=== PATIENT | female | born 1990 | race Caucasian/White ===

== ENCOUNTER 2021-03-06 10:59 | Inpatient (IN) | payer MEDICAID, OTHER ==
[~2021-03-06] VITALS: Ht 162 cm; Wt 86.0 kg
[2021-03-06] VITALS (12 sets, daily range): BP systolic 103–146; BP diastolic 49–96
[2021-03-06 11:42] LABS: BILIRUBIN,URINE NEGATIVE (NEGATIVE); CLARITY,URINE SL CLOUDY; COLOR,URINE YELLOW; GLUCOSE, URINE (UA) NEGATIVE (NEGATIVE); KETONES,URINE NEGATIVE (NEGATIVE); LEUKOCYTE ESTERASE ,URINE 1+ (NEGATIVE); NITRITE,URINE NEGATIVE (NEGATIVE); PROTEIN,URINE NEGATIVE (NEGATIVE)
[2021-03-06 11:57] LABS: AMPHETAMINE SCREEN, URINE NEGATIVE (NEGATIVE); BARBITURATE SCREEN URINE NEGATIVE (NEGATIVE); BENZODIAZEPINES SCREEN URINE NEGATIVE (NEGATIVE); CANNABINOID SCREEN, URINE NEGATIVE (NEGATIVE); COCAINE SCREEN URINE NEGATIVE (NEGATIVE); METHADONE STAT NEGATIVE (NEGATIVE); METHAMPHETAMINE SCREEN URINE S POSITIVE (NEGATIVE); OPIATE SCREEN URINE NEGATIVE (NEGATIVE); OXYCODONE STAT NEGATIVE (NEGATIVE); PROPOXYPHENE STAT NEGATIVE (NEGATIVE); TRICYCLIC ANTIDEPRESSANTS SCRE NEGATIVE (NEGATIVE)
[2021-03-06 12:04] LABS: BACTERIA,URINE MODERATE /HPF
[2021-03-06 12:47] LABS: BASOPHILS % (AUTO) 0 % (0-10); EOSINOPHILS # (AUTO) 0.1 10^3/uL (0.0-0.3); EOSINOPHILS % (AUTO) 2 % (0-10); HEMATOCRIT 29 % (35-52); HEMOGLOBIN 9.3 g/dL (11.5-16.0); LYMPHOCYTES # (AUTO) 2.1 10^3/uL (1.0-4.0); LYMPHOCYTES % (AUTO) 23 % (12-44); MEAN CORPUSCULAR HEMOGLOBIN 27 pg (25-34); MEAN CORPUSCULAR HGB CONC 32 g/dL (32-36); MEAN CORPUSCULAR VOLUME 85 fL (80-99); MEAN PLATELET VOLUME 9.6 fL (9.0-12.2); MONOCYTES # (AUTO) 0.6 10^3/uL (0.0-1.0); MONOCYTES % (AUTO) 6 % (0-12); NEUTROPHILS # (AUTO) 6.1 10^3/uL (1.8-7.8); NEUTROPHILS % (AUTO) 68 % (42-75); PLATELET COUNT 248 10^3/uL (130-400); WHITE BLOOD COUNT 8.9 10^3/uL (4.3-11.0)
[2021-03-06 13:03] LABS: ALBUMIN 2.8 GM/DL (3.2-4.5); BILIRUBIN,TOTAL 0.4 MG/DL (0.1-1.0); CALCIUM 9.2 MG/DL (8.5-10.1); CREATININE SERUM 0.57 MG/DL (0.60-1.30); POTASSIUM 4.2 MMOL/L (3.6-5.0); TOTAL PROTEIN 6.1 GM/DL (6.4-8.2)
[2021-03-06 13:11] LABS: BAND NEUTROPHILS 1 %; BASOPHILS % (MANUAL) 0 %; EOSINOPHILS % (MANUAL) 3 %; LYMPHOCYTES % (MANUAL) 16 %; MONOCYTES % (MANUAL) 5 %; NEUTROPHILS % (MANUAL) 75 %; RBC MORPH NORMAL
--- NOTE | 2021-03-06 14:00 | Diagnostic Imaging Report ---
INDICATION: No care. Study is performed evaluate size and dates. TECHNIQUE: Multiple real-time grayscale images were obtained over the gravid uterus. COMPARISON: None FINDINGS: There is a single live fetus in a cephalic presentation. heart rate was recorded 133 bpm. Placenta is anterior. Amniotic fluid index is 15.5 cm. No gross abnormalities are seen. Biometrical measurements are as follows: Biparietal 8.82 cm, age 35 weeks 5 days. Head circumference 33.98 cm, age 39 weeks 1 days. Abdominal circumference 36.28 cm, age 40 weeks 2 days. Femur length 7.43 cm, age 38 weeks 1 days. Sonographic estimate age: 38 weeks 3 days. Sonographic estimated date of delivery: 03/17/2021. Estimated Weight: 3655 gm (+/- 534 gm). LMP percentile: 71%. heart rate: 133 beats per minute. number: 1 of 1. IMPRESSION: Single live IUP measuring approximately 38 to 39 weeks gestational age with estimated date of confinement sonographic of 03/17/2021. Dictated by: Dictated on workstation # [id number]
--- NOTE | 2021-03-06 15:55 | History & Physical ---
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 murmurs, gallops, or rubs. VASCULAR: No Edema. Peripheral pulses normal and equal in all extremities. ABDOMEN: Soft, without detectable tenderness. No sign of distention. No rebound or guarding, and no masses palpated. Bowel Sounds normal. MUSCULOSKELETAL: Good range of motion of all major joints. Extremities without clubbing, cyanosis or edema. NEUROLOGIC EXAM: Alert and oriented x 3. No focal sensory or strength deficits. Speech normal. Follows commands. PSYCHIATRIC: Mood normal. SKIN: No rash or lesions. Moderate gravid pelvic exam pelvic exam pelvic exam shows cervical change to 3 cm from 1 cm on admission assessment and plan Patient is 38-6/7 weeks gestation by 20-week ultrasoundPatient is 38-6/7 weeks gestation by 20-week ultrasound. She is an active laborPatient is 38-6/7 weeks gestation by 20-week ultrasound. She is an active labor with a previous C- sectionPatient is 38-6/7 weeks gestation by 20-week ultrasound. She is an active labor with a previous and we will proceed with delivery.Patient is 38-6/7 weeks gestation by 20-week ultrasound. She is an active labor with a previous and we will proceed with delivery. Patient understands and agrees with plan 38-week gestation with previous and no care Allergies and Home Medications Allergies Coded Allergies: diphenhydramine (Verified Allergy, Mild, rash, 03/06/21) Uncoded Allergies: cefazolen (Allergy, Intermediate, rash, 03/06/21) Patient Home Medication List Home Medication List Reviewed: Yes LORAINE FENG MD Mar 06, 2021 15:55
[2021-03-06] MEDS ORDERED: metroNIDAZOLE 500MG/100ML IVPB 100 ML ONE (15:58)
[2021-03-06] MEDS ORDERED: METOCLOPRAMIDE INJ 10 MG/2 ML (REGLAN) ONE (15:59)
[2021-03-06] MEDS ORDERED: FAMOTIDINE 20MG/2ML IV (PEPCID) ONE (15:59)
[2021-03-06] MEDS ORDERED: CITRIC ACID/SOB CIT (BICITRA) 30 ML UDC ONE (15:59)
[2021-03-06] MEDS ORDERED: ceFAZolin 2 GM IV Premixed 50 ML ONE (15:59)
[2021-03-06] MEDS ORDERED: CLINDAMYCIN 900 MG/50 ML IVPB 50 ML IV NR (16:00)
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
[2021-03-06] MEDS ORDERED: LACTATED RINGERS 1,000 ML IV PRN ×2 (16:45)
[2021-03-06] MEDS ORDERED: FAMOTIDINE 20MG/2ML IV (PEPCID) IV ONE (16:45)
[2021-03-06] MEDS ORDERED: CITRIC ACID/SOB CIT (BICITRA) 30 ML UDC PO ONE (16:45)
[2021-03-06] MEDS ORDERED: METOCLOPRAMIDE INJ 10 MG/2 ML (REGLAN) IV ONE (16:45)
[2021-03-06] MEDS ORDERED: OXYTOCIN PRE-MIX DRIP 1,000 ML IV ONE (16:57)
[2021-03-06] MEDS ORDERED: fentaNYL INJ 100 MCG/2 ML AMP ONE (16:59)
[2021-03-06] MEDS ORDERED: PHENYLEPHRINE 100 MCG/ML 10 ML (ANESTHESIA) SYR ONE (17:40)
[2021-03-06] MEDS ORDERED: diphenhydrAMINE 50 MG/ML INJ (BENADRYL) ONE (18:21)
[2021-03-06] MEDS ORDERED: ONDANSETRON 4 MG/2 ML (SDV) Z0FRAN ONE (18:23)
[2021-03-06] MEDS ORDERED: HYDROmorphone 2 MG/ML VIAL (DILAUDID) IV ONE (18:45)
[2021-03-06] MEDS ORDERED: ONDANSETRON 4 MG/2 ML (SDV) Z0FRAN IVP PRN ×2 (18:45→20:30)
[2021-03-06] MEDS ORDERED: MEASLES,MUMPS,RUBELLA 1 EA INJ SC ONE (20:30)
[2021-03-06] MEDS ORDERED: fentaNYL INJ 100 MCG/2 ML AMP IVP PRN (20:30)
[2021-03-06] MEDS ORDERED: TETANUS,DIPTH,PERTUSS P/F (BOOSTRIX) 0.5 ML VIAL IM ONE (20:30)
[2021-03-06] MEDS ORDERED: D5 LR IV SOLUTION 1,000 ML IV SCH (20:30)
[2021-03-06] MEDS: KETOROLAC 30 MG/ML VIAL IVP SCH (20:50)
[2021-03-06] MEDS: DOCUSATE SODIUM 100 MG (COLACE) CAP PO SCH (20:50)
[2021-03-06 20:55] LABS: HEPATITIS C ANTIBODY C Non-Reactive (Non-Reactive)
[2021-03-06] MEDS ORDERED: DOCUSATE SODIUM 100 MG (COLACE) CAP PO SCH (21:00)
[2021-03-06] MEDS: oxyCODONE/APAP 10/325MG (PERCOCET 10) TABLET PO PRN (21:58)
[2021-03-06] MEDS: OXYTOCIN PRE-MIX DRIP 500 ML IV SCH (22:43)
[2021-03-07] MEDS: D5 LR IV SOLUTION 1,000 ML IV SCH ×2 (01:31→01:32)
[2021-03-07] MEDS: KETOROLAC 30 MG/ML VIAL IVP SCH (02:42)
[2021-03-07] MEDS: OXYTOCIN PRE-MIX DRIP 500 ML IV SCH (02:42)
[2021-03-07] MEDS: oxyCODONE/APAP 10/325MG (PERCOCET 10) TABLET PO PRN ×4 (03:56→23:46)
[2021-03-07 04:00] VITALS: BP 140/77
--- NOTE | 2021-03-07 06:52 | Anesthesia-Regional Post-Op ---
Regional Patient Condition Mental Status: Alert, Oriented x3 Circulation: Same as Pre-Op Headache: Absent Sensation: Full Recovery Motor Block: Absent Post Op Complications Complications None Follow Up Care/Instructions Patient Instructions None needed. Anesthesia/Patient Condition Patient is doing well, no complaints, stable vital signs, no apparent adverse anesthesia problems. No complications reported per nursing. [place] [facility] [place] VEE BIGGS CRNA Mar 07, 2021 06:52
[2021-03-07 09:30] VITALS: BP 115/68
[2021-03-07] MEDS ORDERED: IBUPROFEN 800 MG (MOTRIN) TAB PO ONE ×3 (10:19→17:43)
[2021-03-07] MEDS: DOCUSATE SODIUM 100 MG (COLACE) CAP PO SCH ×2 (10:42→20:31)
[2021-03-07] MEDS: IBUPROFEN 800 MG (MOTRIN) TAB PO SCH ×3 (10:43→23:43)
--- NOTE | 2021-03-07 10:54 | Progress Note ---
Standard Progress Note Progress Notes/Assess & Plan Date Seen by a Provider: Mar 07, 2021 Time Seen by a Provider: 10:52 Progress/Assessment & Plan This patient is without complaint. She is ambulating, voiding, tolerating oral intake well and has good pain control.This patient is without complaint. She is ambulating, voiding, tolerating oral intake well and has good pain control. Patient denies chest pain, denies shortness of breath, denies nausea vomiting, and denies headache. Vital Signs Date Time Temp Pulse Resp B/P (MAP) Pulse Ox O2 Delivery O2 Flow Rate FiO2 03/07/21 04:00 36.0 66 18 140/77 (98) 97 Room Air 03/06/21 23:09 36.5 54 18 140/66 (90) 96 Room Air 03/06/21 22:26 36.0 56 18 146/80 97 Room Air 03/06/21 22:11 37.0 58 18 120/69 97 Room Air 03/06/21 20:00 36.6 65 18 124/70 (88) 99 Room Air 03/06/21 19:12 Room Air 03/06/21 19:10 36.1 16 103/83 (90) 100 Room Air 03/06/21 19:00 16 110/65 (80) 99 Room Air 03/06/21 19:00 Room Air 03/06/21 18:50 16 120/49 (72) 96 Room Air 03/06/21 18:45 Room Air 03/06/21 18:40 16 104/58 (73) 94 Room Air 03/06/21 18:26 36.1 16 104/63 (77) 95 Room Air 03/06/21 18:26 Room Air 03/06/21 16:50 37.0 79 20 117/62 (80) Room Air 03/06/21 11:48 36.8 75 20 99 Room Air 03/06/21 11:30 37.0 85 18 99 Room Air 03/06/21 11:30 37.0 83 18 132/96 (108) 99 Room Air I & O 03/07/21 07:00 Intake Total 952 ml Output Total 1130 ml Balance -178 ml Vital signs are stable. Patient is afebrile. The abdomen is benign. The fundus is firm below the umbilicus and nontender. The surgical incision is clean dry and intact. Extremities show no clubbing cyanosis. There is no Homans' sign. Assessment and plan Postoperative day #1 status post repeat delivery doing well. Plan is for routine convalescent care Final Diagnosis 38-week repeat LORAINE FENG MD Mar 07, 2021 10:54
[2021-03-07] MEDS ORDERED: TETANUS,DIPTH,PERTUSS P/F (BOOSTRIX) 0.5 ML VIAL IM ONE (11:45)
[2021-03-07 13:00] VITALS: BP 110/79
--- NOTE | 2021-03-07 13:18 | OPERATIVE REPORT ---
DATE OF SERVICE: 03/06/2021 PREOPERATIVE DIAGNOSES: Term at 38 and 6/7 weeks' gestation with previous section, in active labor and history of drug abuse with UDS positive for methamphetamine. POSTOPERATIVE DIAGNOSES: Term at 38 and 6/7 weeks' gestation with previous section, in active labor and history of drug abuse with UDS positive for methamphetamine with large cicatrix. OPERATIVE PROCEDURE: Repeat low transverse delivery of a viable female with Apgars of 8 and 9 at 1 and 5 minutes respectively, weight of 7 pounds 6 ounces, time of 1742 and a cord blood pH of 7.3 as well as removal of a large cicatrix/keloid scar. OPERATIVE DESCRIPTION: With the patient in the supine position under satisfactory spinal analgesia, she was prepped and draped in the usual fashion for abdominal surgery. Haider catheter was placed in the urinary bladder. A Pfannenstiel incision was made through the skin at the site of the patient's previous Pfannenstiel incision, which consist of a large cicatrix/keloid. The entire keloid/cicatrix complex was removed by incising above and below and removing that portion of the skin. The abdomen was then entered in the usual manner. Bladder retractor placed in position, clean scalpel used to make a 4 cm hysterotomy incision transversely across the lower uterine segment that lower uterine segment was exceedingly thin comprised of membranes and peritoneum. It appeared that the scar was to some extent. A small amount of clear fluid with meconium staining was released on hysterotomy. A vigorous viable female was delivered via the uterine incision. was bulb suctioned on delivery of the head and again on completion of delivery. The umbilical cord was doubly clamped, and the infant passed to the fine grader nurse in attendance for delivery. Cord bloods were obtained. The placenta delivered promptly spontaneously [place]. It was normal with a 3-vessel cord. The uterus was exteriorized and interior wiped clean with a wet laparotomy sponge. Uterine incision was then closed with a running lock suture of 2-0 Vicryl. Care was taken to ensure obliteration of the uterine window. The uterus was now returned to abdominal cavity. All blood clot and debris removed from the abdominal cavity. With sponge and needle counts correct and hemostasis assured, the anterior parietal peritoneum was closed with a running suture of 2-0 Vicryl. Rectus muscles were closed with that suture as well. The rectus fascia was closed with 2-0 Vicryl as well. There were some pigmented lesions on the fascia that appeared potentially consistent with endometriosis. These lesions were excised, and that tissue was sent to pathology for permanent section. There were 5 specimens taken. With the fascia closed, the subcutaneous tissue was freed by loosening the overlying skin by undercutting and then the subcutaneous tissue was reapproximated over the fascia to repair the large retracted defect the patient had prior to the procedure. The skin was then reapproximated and closed with veronica. Sponge and needle counts were correct on completion of procedure. Blood loss was around 600 mL. The patient tolerated the procedure well and was transferred to the recovery room in stable condition. The had been taken stable to the full term nursery under the care of the pediatric nurse. Job ID: [id number] DocumentID: [id number] Dictated Date: 03/07/2021 11:05:31 Line Leader Date: 03/07/2021 13:17:34 Dictated By: LORAINE FENG MD
[2021-03-07 17:45] VITALS: BP 115/64
[2021-03-07] MEDS: SIMETHICONE 80 MG (MYLICON) CHEW PO PRN (20:31)
[2021-03-07 23:45] VITALS: BP 115/73
[2021-03-08] MEDS: IBUPROFEN 800 MG (MOTRIN) TAB PO SCH ×4 (06:37→23:43)
[2021-03-08 06:38] VITALS: BP 118/57
[2021-03-08 08:00] VITALS: BP 134/77
[2021-03-08] MEDS: DOCUSATE SODIUM 100 MG (COLACE) CAP PO SCH ×2 (08:11→21:05)
[2021-03-08] MEDS: oxyCODONE/APAP 10/325MG (PERCOCET 10) TABLET PO PRN ×2 (08:13→21:06)
[2021-03-08] MEDS: SIMETHICONE 80 MG (MYLICON) CHEW PO PRN (08:19)
--- NOTE | 2021-03-08 10:54 | Progress Note ---
Standard Progress Note Progress Notes/Assess & Plan Date Seen by a Provider: Mar 08, 2021 Time Seen by a Provider: 10:53 Progress/Assessment & Plan This patient is without complaint. She is ambulating, voiding, tolerating oral intake well and has good pain control.This patient is without complaint. She is ambulating, voiding, tolerating oral intake well and has good pain control. Patient denies chest pain, denies shortness of breath, denies nausea vomiting, and denies headache. Vital Signs Date Time Temp Pulse Resp B/P (MAP) Pulse Ox O2 Delivery O2 Flow Rate FiO2 03/07/21 04:00 36.0 66 18 140/77 (98) 97 Room Air 03/06/21 23:09 36.5 54 18 140/66 (90) 96 Room Air 03/06/21 22:26 36.0 56 18 146/80 97 Room Air 03/06/21 22:11 37.0 58 18 120/69 97 Room Air 03/06/21 20:00 36.6 65 18 124/70 (88) 99 Room Air 03/06/21 19:12 Room Air 03/06/21 19:10 36.1 16 103/83 (90) 100 Room Air 03/06/21 19:00 16 110/65 (80) 99 Room Air 03/06/21 19:00 Room Air 03/06/21 18:50 16 120/49 (72) 96 Room Air 03/06/21 18:45 Room Air 03/06/21 18:40 16 104/58 (73) 94 Room Air 03/06/21 18:26 36.1 16 104/63 (77) 95 Room Air 03/06/21 18:26 Room Air 03/06/21 16:50 37.0 79 20 117/62 (80) Room Air 03/06/21 11:48 36.8 75 20 99 Room Air 03/06/21 11:30 37.0 85 18 99 Room Air 03/06/21 11:30 37.0 83 18 132/96 (108) 99 Room Air I & O 03/07/21 07:00 Intake Total 952 ml Output Total 1130 ml Balance -178 ml Vital signs are stable. Patient is afebrile. The abdomen is benign. The fundus is firm below the umbilicus and nontender. The surgical incision is clean dry and intact. Extremities show no clubbing cyanosis. There is no Homans' sign. Assessment and plan Postoperative day #1 status post repeat delivery doing well. Plan is for routine convalescent care March 08, 2021 This patient is without complaint. She is ambulating, voiding, tolerating oral intake well has good pain control. Vital Signs 03/08/21 08:00 Temp 36.9 Pulse 74 Resp 18 B/P (MAP) 134/77 (96) Pulse Ox 98 O2 Delivery Room Air Vital signs are stable. Patient is afebrile. Fundus is firm below the umbilicus and nontender. Extremities show no clubbing or cyanosis. There is no Homans' sign. Assessment and plan Postoperative day #2 status post repeat delivery doing well. Plan is for routine convalescent care LORAINE FENG MD Mar 08, 2021 10:54
[2021-03-08] MEDS ORDERED: METOCLOPRAMIDE 10 MG (REGLAN) TAB PO PRN (11:00)
[2021-03-08 14:15] VITALS: BP 112/58
[2021-03-08 23:46] VITALS: BP 136/69
[2021-03-09 06:52] VITALS: BP 133/65
[2021-03-09] MEDS: IBUPROFEN 800 MG (MOTRIN) TAB PO SCH ×3 (06:53→18:41)
[2021-03-09 07:35] VITALS: BP 117/71
--- NOTE | 2021-03-09 08:11 | Progress Note ---
Standard Progress Note Progress Notes/Assess & Plan Date Seen by a Provider: Mar 09, 2021 Time Seen by a Provider: 08:10 Progress/Assessment & Plan This patient is without complaint. She is ambulating, voiding, tolerating oral intake well and has good pain control.This patient is without complaint. She is ambulating, voiding, tolerating oral intake well and has good pain control. Patient denies chest pain, denies shortness of breath, denies nausea vomiting, and denies headache. Vital Signs Date Time Temp Pulse Resp B/P (MAP) Pulse Ox O2 Delivery O2 Flow Rate FiO2 03/07/21 04:00 36.0 66 18 140/77 (98) 97 Room Air 03/06/21 23:09 36.5 54 18 140/66 (90) 96 Room Air 03/06/21 22:26 36.0 56 18 146/80 97 Room Air 03/06/21 22:11 37.0 58 18 120/69 97 Room Air 03/06/21 20:00 36.6 65 18 124/70 (88) 99 Room Air 03/06/21 19:12 Room Air 03/06/21 19:10 36.1 16 103/83 (90) 100 Room Air 03/06/21 19:00 16 110/65 (80) 99 Room Air 03/06/21 19:00 Room Air 03/06/21 18:50 16 120/49 (72) 96 Room Air 03/06/21 18:45 Room Air 03/06/21 18:40 16 104/58 (73) 94 Room Air 03/06/21 18:26 36.1 16 104/63 (77) 95 Room Air 03/06/21 18:26 Room Air 03/06/21 16:50 37.0 79 20 117/62 (80) Room Air 03/06/21 11:48 36.8 75 20 99 Room Air 03/06/21 11:30 37.0 85 18 99 Room Air 03/06/21 11:30 37.0 83 18 132/96 (108) 99 Room Air I & O 03/07/21 07:00 Intake Total 952 ml Output Total 1130 ml Balance -178 ml Vital signs are stable. Patient is afebrile. The abdomen is benign. The fundus is firm below the umbilicus and nontender. The surgical incision is clean dry and intact. Extremities show no clubbing cyanosis. There is no Homans' sign. Assessment and plan Postoperative day #1 status post repeat delivery doing well. Plan is for routine convalescent care March 08, 2021 This patient is without complaint. She is ambulating, voiding, tolerating oral intake well has good pain control. Vital Signs 03/08/21 08:00 Temp 36.9 Pulse 74 Resp 18 B/P (MAP) 134/77 (96) Pulse Ox 98 O2 Delivery Room Air Vital signs are stable. Patient is afebrile. Fundus is firm below the umbilicus and nontender. Extremities show no clubbing or cyanosis. There is no Homans' sign. Assessment and plan Postoperative day #2 status post repeat delivery doing well. Plan is for routine convalescent care March 09, 2021 This patient is without complaint. She is ambulating, voiding, tolerating oral intake well has good pain control. Vital Signs Date Time Temp Pulse Resp B/P (MAP) Pulse Ox O2 Delivery O2 Flow Rate FiO2 03/09/21 06:52 35.7 62 16 133/65 (87) 96 Room Air 03/08/21 23:46 35.2 62 16 136/69 (91) 97 Room Air 03/08/21 14:15 36.6 79 16 112/58 (76) 97 Room Air Vital signs are stable. Patient is afebrile. The abdomen is benign. The fundus is firm below the umbilicus and nontender. The incision is clean dry and intact. Extremities show no clubbing cyanosis. There is no Homans' sign. Assessment and plan Postoperative day #3 status post repeat delivery doing well. Plan will be for discharge home today or tomorrow as patient desires Final Diagnosis 38-week repeat LORAINE FENG MD Mar 09, 2021 08:11
[2021-03-09] MEDS ORDERED: OXYC1TAB12 PO (08:13)
[2021-03-09] MEDS ORDERED: IBUP-1780 PO (08:13)
[2021-03-09] MEDS ORDERED: DCS100C PO (08:13)
--- NOTE | 2021-03-09 08:14 | Discharge Inst-Surgical ---
Discharge Inst-Surgical Depart Medication/Instructions New, Converted or Re-Newed RX: Transmitted to Pharmacy Consults/Follow Up Patient Instructions: As directed Orders & Referrals Follow Up Appt: RTC 1 week for incision check. Call to make follow up appt. for patient in 4 to 6 weeks. Wound Care: Remove veronica, apply benzoin and steri strips. Activity Per routine post instructions. Diet as tolerated Patient may shower or tub bathe as desired. Continue home meds Activity Activity as Tolerated: No Diet Discharge Diet: No Restrictions LORAINE FENG MD Mar 09, 2021 08:14
[2021-03-09] MEDS: DOCUSATE SODIUM 100 MG (COLACE) CAP PO SCH ×2 (10:14→20:21)
[2021-03-09] MEDS: oxyCODONE/APAP 10/325MG (PERCOCET 10) TABLET PO PRN ×2 (10:16→20:21)
[2021-03-09 11:55] VITALS: BP 118/87
[2021-03-09 16:55] VITALS: BP 122/85
[2021-03-10 00:17] VITALS: BP 115/58
[2021-03-10] MEDS: IBUPROFEN 800 MG (MOTRIN) TAB PO SCH ×3 (00:17→12:25)
[2021-03-10 06:24] VITALS: BP 140/67
--- NOTE | 2021-03-10 08:44 | Progress Note ---
Standard Progress Note Progress Notes/Assess & Plan Date Seen by a Provider: Mar 10, 2021 Time Seen by a Provider: 08:00 Progress/Assessment & Plan This patient is without complaint. She is ambulating, voiding, tolerating oral intake well and has good pain control.This patient is without complaint. She is ambulating, voiding, tolerating oral intake well and has good pain control. Patient denies chest pain, denies shortness of breath, denies nausea vomiting, and denies headache. Vital Signs Date Time Temp Pulse Resp B/P (MAP) Pulse Ox O2 Delivery O2 Flow Rate FiO2 03/07/21 04:00 36.0 66 18 140/77 (98) 97 Room Air 03/06/21 23:09 36.5 54 18 140/66 (90) 96 Room Air 03/06/21 22:26 36.0 56 18 146/80 97 Room Air 03/06/21 22:11 37.0 58 18 120/69 97 Room Air 03/06/21 20:00 36.6 65 18 124/70 (88) 99 Room Air 03/06/21 19:12 Room Air 03/06/21 19:10 36.1 16 103/83 (90) 100 Room Air 03/06/21 19:00 16 110/65 (80) 99 Room Air 03/06/21 19:00 Room Air 03/06/21 18:50 16 120/49 (72) 96 Room Air 03/06/21 18:45 Room Air 03/06/21 18:40 16 104/58 (73) 94 Room Air 03/06/21 18:26 36.1 16 104/63 (77) 95 Room Air 03/06/21 18:26 Room Air 03/06/21 16:50 37.0 79 20 117/62 (80) Room Air 03/06/21 11:48 36.8 75 20 99 Room Air 03/06/21 11:30 37.0 85 18 99 Room Air 03/06/21 11:30 37.0 83 18 132/96 (108) 99 Room Air I & O 03/07/21 07:00 Intake Total 952 ml Output Total 1130 ml Balance -178 ml Vital signs are stable. Patient is afebrile. The abdomen is benign. The fundus is firm below the umbilicus and nontender. The surgical incision is clean dry and intact. Extremities show no clubbing cyanosis. There is no Homans' sign. Assessment and plan Postoperative day #1 status post repeat delivery doing well. Plan is for routine convalescent care March 08, 2021 This patient is without complaint. She is ambulating, voiding, tolerating oral intake well has good pain control. Vital Signs 03/08/21 08:00 Temp 36.9 Pulse 74 Resp 18 B/P (MAP) 134/77 (96) Pulse Ox 98 O2 Delivery Room Air Vital signs are stable. Patient is afebrile. Fundus is firm below the umbilicus and nontender. Extremities show no clubbing or cyanosis. There is no Homans' sign. Assessment and plan Postoperative day #2 status post repeat delivery doing well. Plan is for routine convalescent care March 09, 2021 This patient is without complaint. She is ambulating, voiding, tolerating oral intake well has good pain control. Vital Signs Date Time Temp Pulse Resp B/P (MAP) Pulse Ox O2 Delivery O2 Flow Rate FiO2 03/09/21 06:52 35.7 62 16 133/65 (87) 96 Room Air 03/08/21 23:46 35.2 62 16 136/69 (91) 97 Room Air 03/08/21 14:15 36.6 79 16 112/58 (76) 97 Room Air Vital signs are stable. Patient is afebrile. The abdomen is benign. The fundus is firm below the umbilicus and nontender. The incision is clean dry and intact. Extremities show no clubbing cyanosis. There is no Homans' sign. Assessment and plan Postoperative day #3 status post repeat delivery doing well. Plan will be for discharge home today or tomorrow as patient desires March 10, 2021 See discharge summary Final Diagnosis 38-week repeat delivery LORAINE FENG MD Mar 10, 2021 08:44
--- NOTE | 2021-03-10 08:48 | Discharge Summary ---
Discharge Summary 38-week repeat delivery This patient is a 31-year-old 4 para 3 1 female who was admitted on 03/06/2021 in active labor. She had no local physician. She reports having had no care. Ultrasound was consistent with a term and she had had an ultrasound around 20 weeks gestation that put her at 38-6/7 weeks gestation. With her obviously in labor and was a previous decision made to proceed with repeat delivery. Patient was taken to the operating room where repeat was performed. The procedure was uneventful and patient recovered uneventfully. On postoperative day #1 patient was ambulating, voiding, tolerating oral intake well and had good pain control. She had routine care through the day. On postoperative day #2 patient was unchanged On postoperative day #3 patient was unchanged Postoperative day #4 patient is ambulating, voiding, tolerating oral intake well and has good pain control. She is ready for discharge home. Principal diagnosis this hospitalization is term/38-week repeat Secondary diagnoses are active labor, previous Operation procedures include monitoring Obstetric ultrasound Spinal analgesia Repeat Patient was given appropriate discharge instructions verbally and in writing a copy was placed in the chart. Discharge medications are Percocet Motrin LORAINE Fairchild MD Mar 10, 2021 08:48
[2021-03-10] MEDS: DOCUSATE SODIUM 100 MG (COLACE) CAP PO SCH (09:36)
[2021-03-10] MEDS: oxyCODONE/APAP 10/325MG (PERCOCET 10) TABLET PO PRN (12:26)
[2021-03-10 12:27] VITALS: BP 123/84
== END 2021-03-10 14:50 | disposition home or self-care (01) | DRG 787 ==
LOC: LDRP 10:59 → WSo 10:59 → LDRP 15:40
PROVIDERS: ADMIT Obstetrics & Gynecology; ATTEND Obstetrics & Gynecology
PROC: 0JB80ZZ Excision of Abdomen Subcutaneous Tissue and Fascia, Open Approach (ICD-10-PCS; 2021-03-06)
PROC: 0HB7XZZ Excision of Abdomen Skin, External Approach (ICD-10-PCS; 2021-03-06)
PROC: 10D00Z1 Extraction of Products of Conception, Low, Open Approach (ICD-10-PCS; principal; 2021-03-06 17:15)
DX: O34.211 Maternal care for low transverse scar from previous cesarean delivery (principal); O99.323 Drug use complicating pregnancy, third trimester; O77.0 Labor and delivery complicated by meconium in amniotic fluid; F15.10 Other stimulant abuse, uncomplicated; Z3A.49 Greater than 42 weeks gestation of pregnancy; O75.89 Other specified complications of labor and delivery; M62.9 Disorder of muscle, unspecified; N85.8 Other specified noninflammatory disorders of uterus; Z37.0 Single live birth; Z3A.38 38 weeks gestation of pregnancy; Z88.1 Allergy status to other antibiotic agents; Z88.8 Allergy status to other drugs, medicaments and biological substances
CPT/HCPCS: 36415; 76805; 80053; 80306; 81000; 85007; 85027; 86695; 86696; 86703; 86762; 86780; 86803; 86850; 86900; 86901; 87081; 87088; 87340; 87491; 88305; 88307; 90715; 99212